=== PATIENT | male | born 1950 | race Caucasian/White ===

== ENCOUNTER 2019-03-06 08:32 | Day surgery (SDC) | payer MEDICARE, OTHER ==
[~2019-03-06] VITALS: Ht 185.4 cm; Wt 98.0 kg
[~2019-03-06 08:32] MED LIST: ASCO500 PO; ASPI81CH PO; FINA5; FINA5 PO; HYDACE5 PO; MULVITMIND PO; OXYACE5T PO; OXYC5; PROM25 PO; Percocet 10-321 EACH PO; Prednisone20 MG PO; RXHYDACE PO; STEROID; TAMS.4ER PO; TERA5; Valium5 MG PO
== END 2019-03-06 11:05 | disposition home or self-care (01) ==
LOC: ORSCSDS 08:32
PROVIDERS: Internal Medicine Gastroenterology
PROC: 0DJD8ZZ Inspection of Lower Intestinal Tract, Via Natural or Artificial Opening Endoscopic (ICD-10-PCS; principal; 2019-03-06 09:45)
DX: Z12.11 Encounter for screening for malignant neoplasm of colon (principal); K57.30 Diverticulosis of large intestine without perforation or abscess without bleeding; Z86.010 Personal history of colon polyps; Z79.899 Other long term (current) drug therapy; Z79.82 Long term (current) use of aspirin; Z87.891 Personal history of nicotine dependence
CPT/HCPCS: J2704; J7120

== ENCOUNTER 2019-10-19 08:14 | Emergency (ER) | payer MEDICARE, BC ==
[~2019-10-19] VITALS: Ht 182.9 cm; Wt 82.5 kg
== END 2019-10-19 09:51 | disposition home or self-care (01) ==
LOC: ER 08:14
DX: S62.001A Unspecified fracture of navicular [scaphoid] bone of right wrist, initial encounter for closed fracture (principal); N40.0 Benign prostatic hyperplasia without lower urinary tract symptoms; Z79.82 Long term (current) use of aspirin; Z79.899 Other long term (current) drug therapy; Z87.891 Personal history of nicotine dependence; X58.XXXA Exposure to other specified factors, initial encounter
CPT/HCPCS: 29125; 73110; 99283-25

== ENCOUNTER → 2021-09-22 | Outpatient (CLI) | payer MEDICARE | END | disposition home or self-care (01) | LOC: LAB SHORT 11:36 → LAB 11:36 | DX: D22.4 Melanocytic nevi of scalp and neck (principal); L82.1 Other seborrheic keratosis | CPT/HCPCS: 88305 ==

== ENCOUNTER 2025-03-23 05:16 | Emergency (ER) | payer MEDICARE ==
[~2025-03-23] VITALS: Ht 185.4 cm; Wt 86.2 kg
[2025-03-23] MEDS ORDERED: Fluorescein Sod 1MG Opth Strips BOTHEYES ONE (05:35)
[2025-03-23] MEDS ORDERED: Tetracaine HCl/Pf 0.5% Opth Soln 4 ml BOTHEYES ONE (05:35)
[2025-03-23 05:38] VITALS: BP 163/90
[2025-03-23] MEDS ORDERED: Ofloxacin 0.3% Opth Soln 5 ML RIGHTEYE ONE (06:50)
== END 2025-03-23 07:01 | disposition home or self-care (01) ==
LOC: ER 05:16
DX: S05.02XA Injury of conjunctiva and corneal abrasion without foreign body, left eye, initial encounter (principal); T15.81XA Foreign body in other and multiple parts of external eye, right eye, initial encounter; Z79.82 Long term (current) use of aspirin; Z87.891 Personal history of nicotine dependence; W22.8XXA Striking against or struck by other objects, initial encounter; Z87.442 Personal history of urinary calculi
CPT/HCPCS: 67938; 70030; 90471; 90715; 99283-25; A9270